=== PATIENT | male | born 1980 | race Caucasian/White ===

== ENCOUNTER 2018-10-12 08:55 | Emergency (ER) | payer MEDICAID, SELFPAY ==
[2018-10-12 08:56] VITALS: BP 152/106; PULSE 86; RESP 15; TEMP 36.6; O2SAT 97; BMI 27.2
--- NOTE | 2018-10-12 09:12 | ED.VISSUMM ---
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 not injure his arm anyway he has had no signs of MRSA since the surgery he is otherwise not been ill, has had no fever no cough no direct trauma he is able to use his extremity but complains of a numbness sensation of pain from the axilla down to the hand that is chronic Physical Examination: [] Febrile no distress resting currently the bed When I asked him where he has the pain he lifts his arm and points to a scar under the right axilla from the postsurgical site the site is soft there is no warmth redness fluctuance or mass, no gross abnormalities, he has full range of motion of the shoulder, the right upper extremity detailed exam shows full range of motion of the shoulder the elbow the wrist and the hand there is a strong radial pulse there is normal Refill to all digits thumb function finger 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 he states that not really not new and when he moves at the shoulder he complains of discomfort but again that also was not new just exacerbated again there is no signs of trauma or infection or neurovascular abnormality, there is no warmth or swelling to the right upper extremity in any area General, no distress resting comfortably HEENT is generally unremarkable The neck is supple no adenopathy Cardiovascular, regular rate and rhythm Lungs, clear bilateral Abdomen, soft nontender Extremities, the above the rest of the extremities are unremarkable Neurologic, awake alert answering questions appropriately moving all 4 extremities Test Results: [] Emergency Department Course and Treatment: [] Long conversation with him there is no signs of recurrent MRSA he has not had MRSA since his surgery I explained to him I do not know what causing the current exacerbation of his chronic condition, there is nothing to suggest an acute neurovascular abnormality he agrees he is careful discharged home to follow with his plastic surgeon tomorrow, Toradol here Naprosyn for home use sling to be placed off work and asked to return for change in symptoms Treatment Plan: [] Disposition: [] Home stable Impression: [] Acute recurrent right upper extremity pain and numbness, history of right axillary MRSA requiring surgery This note was generated with [employer] dictation software. It may contain incorrect words, spelling, and punctuation that were not noted in review of the chart prior to signing ED Disposition - Plan for ED Patient: Referrals: Onesimo Walker MD [Primary Care Provider] -
--- NOTE | 2018-10-12 09:15 | ED.DEP ---
ED Disposition - Plan for ED Patient: Instructions: ED Shoulder Pain [facility] Prescriptions: Naproxen [Naprosyn] 500 mg PO BID PRN #20 tab Referrals: Onesimo Walker MD [Primary Care Provider] - Additional Instructions: Please follow-up with your plastic surgeon off work return for change in symptoms
[2018-10-12] MEDS: Ketorolac 60 MG/2 ML Vial IM (09:18)
== END 2018-10-12 10:04 | disposition home or self-care (01) ==
PROVIDERS: Emergency Provider Emergency Medicine
DX: R20.0 Anesthesia of skin (principal); M79.601 Pain in right arm; Z86.14 Personal history of Methicillin resistant Staphylococcus aureus infection
CPT/HCPCS: 96372; 99282